=== PATIENT | female | born 1995 | race Caucasian/White ===

== ENCOUNTER 2021-10-31 15:06 | Emergency (ER) | payer OTHER ==
[~2021-10-31] VITALS: Ht 154.9 cm; Wt 53.1 kg
--- NOTE | 2021-10-31 15:26 | NUR ---
TO ER BED 16, BIBS C/O VAGINAL BLEEDING AND ABDOMINAL PAIN X4DAYS, P/S /, AMBULATORY, AAOX3, BREATHING EVEN AND NON LABORED, AWAITING MD ORDERS
--- NOTE | 2021-10-31 15:45 | NUR ---
URINE COLLECTED AND SENT TO LAB
[2021-10-31 16:13] LABS: BASOPHILS % (AUTO) 0.4 % (0.0-2.0); EOSINOPHILS % (AUTO) 1.7 % (0.0-6.0); HEMATOCRIT 41 % (33-45); HEMOGLOBIN 13.7 g/dL (11.5-14.8); LYMPHOCYTES % (AUTO) 33.7 % (20.0-44.0); MEAN CORPUSCULAR HGB CONC 34 g/dl (31.0-36.0); MEAN CORPUSCULAR VOLUME 87 fL (82-100); MONOCYTES # (AUTO) 0.4 K/uL (0.1-1.30); MONOCYTES % (AUTO) 7.5 % (2.0-12.0); NEUTROPHILS # (AUTO) 3.4 K/uL (1.8-8.9); NEUTROPHILS % (AUTO) 56.7 % (43.0-81.0); PLATELET COUNT (AUTO) 201 K/uL (150-450)
[2021-10-31 16:23] LABS: CREATININE 0.7 mg/dL (0.6-1.3); POTASSIUM 3.6 mmol/L (3.5-5.1)
[2021-10-31 16:43] LABS: BILIRUBIN,URINE NEGATIVE (NEGATIVE); COLOR,URINE YELLOW (YELLOW); LEUKOCYTE ESTERASE ,URINE TRACE (NEGATIVE); NITRITE, URINE NEGATIVE (NEGATIVE); PROTEIN,URINE NEGATIVE (NEGATIVE); UGLUCOSE NEGATIVE (NEGATIVE); UROBILINOGEN,URINE 0.2 EU/dL (0.2)
--- NOTE | 2021-10-31 17:19 | NUR ---
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 MADE ELTON CROWDER AWARE
[2021-10-31 17:21] LABS: BACTERIA,URINE 2+ /HPF (None Seen)
[2021-10-31 17:22] LABS: MUCUS,URINE Few /LPF (None Seen)
--- NOTE | 2021-10-31 17:48 | NUR ---
Patient discharged to home in stable condition. Written and verbal after care instructions given. Patient verbalizes understanding of instruction.
[2021-10-31 17:56] VITALS: BP 120/68
== END 2021-10-31 17:57 | disposition home or self-care (01) ==
LOC: ER 15:18
DX: O20.0 Threatened abortion (principal); R11.0 Nausea; Z3A.01 Less than 8 weeks gestation of pregnancy
CPT/HCPCS: 36415; 76856-TC; 80048-TC; 81001; 84702-TC; 85025-TC; 87086-TC